=== PATIENT | male | born 1955 | race Caucasian/White ===

== ENCOUNTER → 2018-01-19 | Outpatient (CLI) | payer OTHER ==
[~2018-01-19] MED LIST: ALEVE220 M1 PO; ARTIFICIAL TEA1 EACH OPHTHALMIC; BENADRYL25 MG PO; BENAZEPRIL HCL20 MG PO; EPIPEN 2-P0.3 MG/0.3 SUBQ; KETOROLAC 0.5% E5 ML OPHTHALMIC; MEDROLDOSEPACK; NORVASC 5 MG TAB5 MG PO; OCUFLOX10 ML OPHTHALMIC; OMEPRAZOLE 20 M20 M1 PO; PEPCID20 MG PO; PREDNISOLONE ACETATE OPHTHALMIC; PREDNISONE 10 M10 MG PO; PREDNISONE 5 MG5 M1 PO; REQUIP 0.25 M0.25 MG PO; ZOCOR20 MG PO
--- NOTE | 2018-01-19 13:52 | EXE ---
[place] [address] STRESS ECHOCARDIOGRAM Name: MARGRET WOODS Room: [facility]#: [id number] Admission: 01/19/18 Attend Phys: Yo Bahena, Discharge: Date of : 53 Date of Service: 01/19/18 1351 Report #: [id number] THIS REPORT FOR: //name// APPROVED REPORT Study performed: 01/19/2018 11:26:36 Exam: Stress Echocardiogram Indication: Chest pain , murmur Patient Location: Out-Patient Stress Nurse: Danelle Reyes RN Supervising Physician: Chris Salguero MD Status: routine Ht: 5 ft 11 in HR: 573 bpm BP: 157/94 mmHg Rhythm: NSR Medical History Cardiac Risk Factors: Hyperlipidemia, HTN Procedure The patient underwent an Exercise Stress Test using the Sterling Protocol. Blood pressure, heart rate, and EKG were monitored. An Echocardiogram was performed by hvac field service technician in four stages in quad fashion. At peak stress, four selected images were obtained and placed side by side with resting images for comparison. Stress Test Details Stress Test: Exercise stress testing was performed using a Sterling protocol. HR Resting HR: 57 bpm Max Heart Rate (APMHR): 157 bpm Max HR Achieved: 141 bpm Target HR (85% APMHR): 133 bpm % of APMHR: 89 Recovery HR: 75 bpm HR response to stress: Normal HR response to stress BP Resting BP: 157/94 mmHg Max BP: 224/83 mmHg Recovery BP: 179/99 [place] [address] STRESS ECHOCARDIOGRAM Name: MARGRET WOODS Room: [facility]#: [id number] Admission: 01/19/18 Attend Phys: Yo Bahena, Discharge: Date of : 53 Date of Service: 01/19/18 1351 Report #: [id number] Clinical Reason for Termination: Maximal effort Exercise duration: 10 min 19 sec Highest Stage Achieved: Stage 4: 4.2 mph at 16% grade. Exercise capacity: 12.3 METs Pre-Stress Echo The resting Echocardiogram showed normal left ventricular contractility with an estimated Ejection Fraction of about 55-60%. Normal wall motion in all segments on baseline images. Post-Stress Echo The stress Echocardiogram showed normal left ventricular contractility with an estimated Ejection Fraction of about >70%. Normal augmentation of wall motion in all segments on post stress images. Conclusion Clinical Response: Non-ischemic Exercise Capacity: Superior Stress ECG Response: Indeterminant Stress Echo Images: Non-ischemic Other Information Study Quality: Good <ELECTRONICALLY SIGNED> By: Chris Salguero MD, [facility] 01/19/18 1351 1351 1351 Chris Salguero MD, FACC /INF
== END ==
LOC: M.CRD 10:38
DX: R07.9 Chest pain, unspecified (principal); R01.1 Cardiac murmur, unspecified; R06.02 Shortness of breath